=== PATIENT | female | born 1945 | race Caucasian/White ===

== ENCOUNTER 2017-01-23 07:56 | Inpatient (IN) | payer OTHER, MEDICARE ==
[~2017-01-23] VITALS: Ht 165.1 cm; Wt 117.5 kg
[2017-01-23] VITALS (9 sets, daily range): BP systolic 57–196; BP diastolic 43–110
[~2017-01-23 07:56] MED LIST: ADVAIR HFA120 INHALA IH; AMLODIPINE BESY10 MG PO; ANTIVERT25 MG PO; ASPIR-LOW81 MG PO; ATROVENT 00.5 MG/2.5 IH; Antivert PO; Aspirin E.C. PO; BUSPAR10 MG PO; Buspar PO; CEFUROXIME500 MG PO; CLONIDINE HCL0.1 MG PO; Calan PO; DIFLUCAN100 MG PO; FUROSEMIDE20 MG PO; Flonase BOTH NARES; Glucophage PO; HUMALOG100 UNIT/1 SC; KLONOPIN0.5 M1 PO; KlonoPIN PO; LASIX20 MG PO; LASIX40 MG PO; LEVEMIR FL100 UNITS/ SC; LEVEMIR100 UNIT/2 SC; LEVOFLOXACIN750 MG PO; LISINOPRIL20 MG PO; LOSARTAN POTASS25 MG PO; LOVASTATIN20 MG PO; Lasix PO; Lovastatin PO; METFORMIN HCL500 MG PO; Medrol Dosepak PO; NORVASC5 MG PO; NOVOLIN N100 UNITS/ SC; Norvasc PO; PERFOROMIS20 MCG/2 M IH; PREDNISONE10 MG PO; PREDNISONE20 MG PO; PROBIOTIC1 EAC1 PO; SPIRIVA RESPIMAT4 GM IH; THEO-DUR,THEOC200 MG PO; VERAPAMIL ER300 MG PO; ZITHROMAX Z-PA250 MG PO
[2017-01-23 09:27] LABS: BASOPHIL COUNT 0.1 K/uL (0-0.1); EOSINOPHIL COUNT 0.2 K/uL (0-0.3); HEMATOCRIT 37.5 % (36.0-46.0); IMMATURE GRANULOCYTE (%) 0.5 % (0.0-0.7); IMMATURE GRANULOCYTE COUNT 0.1 K/uL; LYMPHOCYTE COUNT 1.9 K/uL (1.0-2.8); MCHC 31.5 G/DL (30.0-36.0); MCV 89.1 FL (83-99); MEAN PLAT.VOLUME 10.9 uM^3 (9.5-12.4); MONOCYTE (%) 8.5 % (3-12); MONOCYTE COUNT 1.7 K/uL (0-0.8); NEUTROPHIL (%) 80.4 % (45-76); PLATELET COUNT 284 K/uL (156-360); RBC DIS.WIDTH-SD 45.8 % (39-53); RED BLOOD COUNT 4.21 M/uL (3.80-5.20); WHITE BLOOD COUNT 19.9 K/uL (4.1-10.2)
[2017-01-23 09:40] LABS: CHLORIDE 102 mEq/L (99-109); SODIUM 138 mEq/L (136-147)
[2017-01-23 09:42] LABS: GLUCOSE 153 mg/dL (70-99)
[2017-01-23 09:44] LABS: ANION GAP 11 MEQ/L (2-14)
[2017-01-23 09:46] LABS: D-DIMER ELISA 1.13 mg/L FEU (< 0.57); GFR ESTIMATE (CALCULATED) > 59 mL/min/; INTER. NORMALIZED RATIO 1.1; PROTHROMBIN TIME 11.4 (9.2-11.2); PTT 31.4 (25-32)
[2017-01-23 09:47] LABS: UREA NITROGEN (BUN) 9 mg/dL (9-23)
[2017-01-23 09:50] LABS: TROP-I INTERPRETATION NEGATIVE; TROPONIN-I < 0.01 ng/mL (0.0-0.30)
[2017-01-23] MEDS ORDERED: PREDNISONE5 MG PO (12:41)
[2017-01-23] MEDS ORDERED: ATROVENT 00.5 MG/2.5 IH (12:42)
[2017-01-23] MEDS ORDERED: THEOPHYLLINE400 MG PO (12:42)
[2017-01-24 02:39] VITALS: BP 167/80
[2017-01-24 06:51] VITALS: BP 159/69
[2017-01-24 07:12] LABS: EOSINOPHIL (%) 0 % (0-5); HEMATOCRIT 35.5 % (36.0-46.0); IMMATURE GRANULOCYTE (%) 1.1 % (0.0-0.7); IMMATURE GRANULOCYTE COUNT 0.2 K/uL; INSTRUMENT ABS NEUTROPHIL CT 17.2 K/uL; LYMPHOCYTE COUNT 1.5 K/uL (1.0-2.8); MCH 27.9 PG (29.0-34.0); MCHC 31.8 G/DL (30.0-36.0); MCV 87.7 FL (83-99); MEAN PLAT.VOLUME 11.4 uM^3 (9.5-12.4); MONOCYTE (%) 6.7 % (3-12); MONOCYTE COUNT 1.4 K/uL (0-0.8); NEUTROPHIL (%) 84.5 % (45-76); NEUTROPHIL COUNT 17.2 K/uL (1.8-6.4); PLATELET COUNT 297 K/uL (156-360); RBC DIS.WIDTH-CV 13.3 % (11.8-14.6); RBC DIS.WIDTH-SD 42.9 % (39-53); RED BLOOD COUNT 4.05 M/uL (3.80-5.20); WHITE BLOOD COUNT 20.4 K/uL (4.1-10.2)
[2017-01-24 07:38] LABS: ANION GAP 9 MEQ/L (2-14); CHLORIDE 103 MEQ/L (99-109); GFR ESTIMATE (CALCULATED) > 59 mL/min/; POTASSIUM 4.1 MEQ/L (3.7-5.4); SAMPLE HEMOLYSIS CHECK 0; SAMPLE ICTERIC CHECK 0; SAMPLE LIPEMIA CHECK 0; SODIUM 137 MEQ/L (136-147); UREA NITROGEN (BUN) 17 mg/dL (9-23)
[2017-01-24 07:39] LABS: GLUCOSE 261 mg/dL (70-99)
[2017-01-24 11:28] VITALS: BP 181/76
[2017-01-24 11:55] LABS: POINT-OF-CARE METER ID UU13113725
[2017-01-24 14:50] VITALS: BP 165/73
[2017-01-24 15:50] LABS: POINT-OF-CARE METER ID UU13113725
[2017-01-24 19:14] VITALS: BP 148/68
[2017-01-24 22:32] VITALS: BP 165/70
[2017-01-25 03:27] VITALS: BP 155/77
[2017-01-25 06:53] LABS: BASOPHIL COUNT 0.1 K/uL (0-0.1); EOSINOPHIL (%) 0.6 % (0-5); EOSINOPHIL COUNT 0.1 K/uL (0-0.3); HEMATOCRIT 36.4 % (36.0-46.0); IMMATURE GRANULOCYTE (%) 0.7 % (0.0-0.7); IMMATURE GRANULOCYTE COUNT 0.1 K/uL; INSTRUMENT ABS NEUTROPHIL CT 16.3 K/uL; LYMPHOCYTE COUNT 2.7 K/uL (1.0-2.8); MCH 27.6 PG (29.0-34.0); MCV 88.8 FL (83-99); MEAN PLAT.VOLUME 11.2 uM^3 (9.5-12.4); MONOCYTE (%) 8.2 % (3-12); MONOCYTE COUNT 1.7 K/uL (0-0.8); NEUTROPHIL (%) 77.6 % (45-76); NEUTROPHIL COUNT 16.3 K/uL (1.8-6.4); PLATELET COUNT 329 K/uL (156-360); RBC DIS.WIDTH-CV 13.4 % (11.8-14.6); RBC DIS.WIDTH-SD 44.1 % (39-53)
[2017-01-25 07:11] VITALS: BP 165/80
[2017-01-25 07:22] LABS: ALKALINE PHOSPHATASE 75 IU/L (3-129); ANION GAP 11 MEQ/L (2-14); CHLORIDE 106 MEQ/L (99-109); GFR ESTIMATE (CALCULATED) > 59 mL/min/; POTASSIUM 3.5 MEQ/L (3.7-5.4); SAMPLE HEMOLYSIS CHECK 0; SAMPLE ICTERIC CHECK 0; SAMPLE LIPEMIA CHECK 0; SODIUM 143 MEQ/L (136-147); TOTAL BILIRUBIN 0.2 MG/DL (0.0-1.0); UREA NITROGEN (BUN) 16 mg/dL (9-23)
[2017-01-25 07:23] LABS: GLUCOSE 93 mg/dL (70-99)
[2017-01-25 10:52] LABS: POINT-OF-CARE METER ID UU13113725
[2017-01-25 12:00] VITALS: BP 164/76
[2017-01-25 15:16] VITALS: BP 148/74
[2017-01-25 16:22] LABS: POINT-OF-CARE METER ID UU13113725
[2017-01-25 19:14] VITALS: BP 170/79
[2017-01-25 19:25] LABS: ADD MIUA? NO; BILIRUBIN NEGATIVE; BLOOD NEGATIVE; COLOR STRAW ((YELLOW)); GLUCOSE (STRIP) 50; KETONES NEGATIVE; LEUKOCYTES NEGATIVE; NITRITE NEGATIVE; PROTEIN (STRIP) 30; SPECIFIC GRAVITY 1.011 (1.000-1.030); UCUL ADDED? NO; UROBILINOGEN 0.2 MG/DL (0.2-1.0)
[2017-01-25 21:12] LABS: POINT-OF-CARE METER ID UU13113725
[2017-01-25 22:43] VITALS: BP 140/75
[2017-01-26 03:37] VITALS: BP 132/84
[2017-01-26 05:55] LABS: POINT-OF-CARE METER ID UU13113725
[2017-01-26 06:25] LABS: HEMATOCRIT 38.2 % (36.0-46.0); MCH 27.8 PG (29.0-34.0); MCHC 31.4 G/DL (30.0-36.0); MCV 88.6 FL (83-99); MEAN PLAT.VOLUME 10.8 uM^3 (9.5-12.4); PLATELET COUNT 352 K/uL (156-360); RBC DIS.WIDTH-CV 13.3 % (11.8-14.6); RBC DIS.WIDTH-SD 43.7 % (39-53); RED BLOOD COUNT 4.31 M/uL (3.80-5.20); WHITE BLOOD COUNT 16.8 K/uL (4.1-10.2)
[2017-01-26 07:02] VITALS: BP 190/84
[2017-01-26 07:26] LABS: ALKALINE PHOSPHATASE 73 IU/L (3-129); ANION GAP 9 MEQ/L (2-14); CHLORIDE 104 MEQ/L (99-109); GFR ESTIMATE (CALCULATED) > 59 mL/min/; GLUCOSE 109 mg/dL (70-99); SAMPLE HEMOLYSIS CHECK 0; SAMPLE ICTERIC CHECK 0; SAMPLE LIPEMIA CHECK 0; SODIUM 143 MEQ/L (136-147); UREA NITROGEN (BUN) 11 mg/dL (9-23)
[2017-01-26 07:29] LABS: TOTAL BILIRUBIN 0.3 MG/DL (0.0-1.0)
[2017-01-26] MEDS ORDERED: LEVAQUIN500 MG PO (07:43)
== END 2017-01-26 11:30 | disposition home or self-care (01) | DRG 194 ==
LOC: EME 07:56 → EDOF 12:20 → 5EAST 12:20
PROVIDERS: Emergency Medicine; Nurse Practitioner Adult Health; Pediatrics
DX: J18.9 Pneumonia, unspecified organism (principal); J44.1 Chronic obstructive pulmonary disease with (acute) exacerbation; Z99.81 Dependence on supplemental oxygen; E66.01 Morbid (severe) obesity due to excess calories; E11.9 Type 2 diabetes mellitus without complications; E78.5 Hyperlipidemia, unspecified; I10 Essential (primary) hypertension; K21.9 Gastro-esophageal reflux disease without esophagitis; Z85.3 Personal history of malignant neoplasm of breast; Z90.11 Acquired absence of right breast and nipple; Z90.710 Acquired absence of both cervix and uterus; Z87.891 Personal history of nicotine dependence; Z79.4 Long term (current) use of insulin; E87.6 Hypokalemia
CPT/HCPCS: 71010; 71020; 71275; 80048; 80053; 81003; 82948; 83880; 84484; 85025; 85027; 85379; 85610; 85730; 87040; 93005; 94640; 94799; 99202; 99281; 99285; J1815; J1956; J2543; J2930; J3370; J3475; J7512